=== PATIENT | female | born 1985 | race Two or more races ===

== ENCOUNTER 2018-10-29 09:55 | Inpatient (IN) | payer MEDICAID ==
[~2018-10-29] VITALS: Ht 152.4 cm; Wt 79.4 kg
--- NOTE | 2018-10-29 10:00 | NUR ---
BIB SELF W C/O EPIGASTRIC PAIN X 1 DAY WITH NAUSEA, NO VOMITING. TO ER BED 9, HOOKED TO MONITOR, CHANGED TO WN, AWAITING MD SAMANIEGO
--- NOTE | 2018-10-29 10:11 | NUR ---
URINE SAMPLE SENT TO LAB
--- NOTE | 2018-10-29 10:15 | NUR ---
PT LABS DRAWNED AND SENT TO LAB, AWAITING RESULTS.
[2018-10-29] MEDS ORDERED: ONDANSETRON HCL/PF 4 MG/2 ML VIAL ONE (10:27)
[2018-10-29 10:30] LABS: BASOPHILS % (AUTO) 0.3 % (0.0-2.0); EOSINOPHILS % (AUTO) 0.3 % (0.0-6.0); HEMATOCRIT 40 % (33-45); HEMOGLOBIN 13.5 g/dL (11.5-14.8); LYMPHOCYTES # (AUTO) 1.7 /CMM (0.8-4.8); LYMPHOCYTES % (AUTO) 16.9 % (20.0-44.0); MEAN CORPUSCULAR HGB CONC 33 g/dl (31.0-36.0); MEAN CORPUSCULAR VOLUME 90 fL (82-100); MONOCYTES # (AUTO) 0.7 /CMM (0.1-1.30); MONOCYTES % (AUTO) 7.5 % (2.0-12.0); NEUTROPHILS # (AUTO) 7.4 /CMM (1.8-8.9); PLATELET COUNT (AUTO) 300 /CMM (150-450); RED BLOOD CELL COUNT(AUTO) 4.51 MIL/uL (4.0-5.2); WHITE BLOOD COUNT (AUTO) 9.9 K/uL (4.3-11.0)
[2018-10-29] MEDS ORDERED: ONDANSETRON HCL/PF 4 MG/2 ML VIAL IVP ONE (10:30)
[2018-10-29] MEDS ORDERED: IV NS 0.9% 1,000 ML BAG IV ONE (10:30)
[2018-10-29 10:32] LABS: APPEARANCE,URINE Clear (CLEAR); BILIRUBIN,URINE SMALL (NEGATIVE); BLOOD, URINE Trace-intact Ery/uL (NEGATIVE); COLOR,URINE Yellow (YELLOW); KETONES,URINE Negative (NEGATIVE); LEUKOCYTE ESTERASE ,URINE Small (NEGATIVE); NITRITE, URINE Negative (NEGATIVE); PROTEIN,URINE Negative (NEGATIVE); UGLUCOSE Negative (NEGATIVE); UROBILINOGEN,URINE 0.2 EU/dL (0.2)
--- NOTE | 2018-10-29 10:33 | NUR ---
AT BEDSIDE FOR EVAL.
[2018-10-29 10:34] LABS: CALCIUM, SERUM 9.2 mg/dL (8.5-10.1); CREATININE 0.8 mg/dL (0.6-1.3)
[2018-10-29] MEDS ORDERED: MAG HYDROX/AL HYDROX/SIMETH 30 ML UDC ONE (10:38)
[2018-10-29] MEDS ORDERED: FAMOTIDINE/PF INJ 20 MG/2 ML VIAL IV ONE ×2 (10:39→11:00)
[2018-10-29 10:40] LABS: BACTERIA,URINE 1+ /HPF (None Seen); SQUAMOUS EPITHELIAL CELL,UR Few /HPF (None Seen)
[2018-10-29 10:41] LABS: ALBUMIN 3.8 g/dL (3.4-5.0); BILIRUBIN,TOTAL 1.5 mg/dL (0.2-1.0); TOTAL PROTEIN, SERUM 8.1 g/dL (6.4-8.2)
[2018-10-29] MEDS ORDERED: MAG HYDROX/AL HYDROX/SIMETH 30 ML UDC PO ONE (11:00)
[2018-10-29] MEDS ORDERED: HYDROMORPHONE INJ 2 MG/ML DISP.SYRIN ONE (11:18)
--- NOTE | 2018-10-29 11:20 | NUR ---
CALLED [facility] FOR PANEL CALL AND DR ENG WAS PAGED.
--- NOTE | 2018-10-29 11:20 | NUR ---
TECH AT BEDSIDE FOR US.
--- NOTE | 2018-10-29 11:28 | NUR ---
PT IS ASSIGNED TO MED SURG RM#: [id number], DX: ACUTE PANCREATITIS, AND ACCEPTING MD: DR ENG
[2018-10-29] MEDS ORDERED: HYDROMORPHONE INJ 0.5 MG/0.5 ML SYRINGE IV ONE (11:30)
--- NOTE | 2018-10-29 11:39 | NUR ---
CALLED AND LEFT A VOICEMAIL FOR LOOM TUNER SURGEON -- DR RODRIGUEZ
--- NOTE | 2018-10-29 11:40 | NUR ---
CALLED [facility] AND A PAGE WAS SENT OUT TO DR FOX
--- NOTE | 2018-10-29 11:55 | NUR ---
REPORT GIVEN TO SIMONE BEAN FOR FREDY MS 324-1
--- NOTE | 2018-10-29 12:10 | NUR ---
Dr. Reginaldo Campa [phone] CALLED
--- NOTE | 2018-10-29 12:11 | NUR ---
CALLED Dr. Robi Abreu [phone]
[2018-10-29 12:15] VITALS: BP 106/66
--- NOTE | 2018-10-29 12:15 | NUR ---
MS SUPERVISOR WOOL SHEARING NOTE RECEIVED PT FROM ER VIA WHEELCHAIR, C/O OF ABDOMINAL PAIN. PT IS ALERT AND ORIENTED X4, DENIES N/V, CHEST PAIN, SOB AT THIS TIME. L AC #20G IV IS SALINE LOCKED WITHOUT REDNESS OR SWELLING. PT STATES THAT SHE DOES NOT HAVE ANY ADB PAIN AT THIS CURRENT TIME. PT PLACED IN GOWN AND ID BAND. VS OBTAINED. NPO STATUS MAINTAINED FOR NOW. UNIT ORIENTATION PROVIDED TO PT AND DAFNE AT THE BEDSIDE. BELONGINGS REVIEWED AND BELONGINGS LIST SIGNED AND PLACED IN CHART. ALL NEEDS ATTENDED TO, BED IS LOCKED AND IN THE LOWEST POSITION, SIDE RAILS UP X2, CALL LIGHT WITHIN REACH. PENDING ADMISSION ORDERS FROM DR. ENG.
--- NOTE | 2018-10-29 12:29 | NUR ---
MS RN CONTACTED DR. ENG CONTACTED DR. ENG REQUESTING ADMISSION ORDERS, AWAITING RESPONSE.
--- NOTE | 2018-10-29 14:27 | NUR ---
MS RN CONTACTED DR. ENG CONTACTED DR. ENG REGARDING PT REQUEST FOR PAIN MEDICATION FOR ABD PAIN 04/02 AND FOR ADMISSION ORDERS. AWAITING RESPONSE.
--- NOTE | 2018-10-29 14:44 | NUR ---
MS RN PAGED EPIC PAGED [facility] FOR DR. ENG, AWAITING RESPONSE
[2018-10-29 16:00] VITALS: BP 103/63
[2018-10-29] MEDS ORDERED: IV LR 1000 ML 1,000 ML IV SCH (16:00)
[2018-10-29] MEDS ORDERED: ONDANSETRON HCL/PF 4 MG/2 ML VIAL IV PRN (16:30)
[2018-10-29] MEDS ORDERED: HYDROMORPHONE INJ 2 MG/ML DISP.SYRIN IV ONE (16:30)
[2018-10-29] MEDS ORDERED: Z GUARD REMEDY 2 OZ OINT TP PRN (17:00)
[2018-10-29] MEDS ORDERED: ACETAMINOPHEN 325 MG TABLET PO PRN (17:00)
[2018-10-29] MEDS ORDERED: ZOLPIDEM TARTRATE 5 MG TABLET PO PRN (17:00)
[2018-10-29] MEDS ORDERED: ONDANSETRON HCL/PF 4 MG/2 ML VIAL IVP PRN (17:00)
[2018-10-29] MEDS ORDERED: MAGNESIUM HYDROXIDE 30 ML UDC PO PRN (17:00)
[2018-10-29] MEDS ORDERED: HYDROCODONE/APAP 5/325MG 1 EACH TABLET PO PRN (17:00)
[2018-10-29] MEDS ORDERED: MAG HYDROX/AL HYDROX/SIMETH 30 ML UDC PO PRN (17:00)
--- NOTE | 2018-10-29 17:53 | NUR ---
[facility]ED DR[facility]
--- NOTE | 2018-10-29 18:19 | NUR ---
MS RN CLOSING NOTE PT IN BED, ALERT AND ORIENTED X4. DENIES N/V, CHEST PAIN, SOB, BREATHING IS EVEN AND UNLABORED ON ROOM AIR. L AC #20G IV IS INFUSING ORDERED WITHOUT REDNESS OR SWELLING. ADLS PROVIDED. ALL NEEDS ATTENDED TO, DAFNE AT THE BEDSIDE. BED IS LOCKED AND IN LOWEST POSITION, SIDE RAILS UP X2, BED ALARM ON, CALL LIGHT WITHIN REACH. WILL ENDORSE TO [employer]TER COMMERCIAL NURSE FOR CONTINUITY OF CARE.
--- NOTE | 2018-10-29 19:30 | NUR ---
RECEIVED PATIENT AWAKE IN BED. AO X 3, ABLE TO MAKE NEEDS KNOWN. NO ACUTE DISTRESS NOTED. MONITORED FOR PAIN. IV SITE PATENT, INTACT; IVF INFUSING ORDERED. SAFETY REMINDERS GIVEN. ON LOW BED WITH BILATERAL UPPER SIDE RAILS UP. CALL MYERS WITHIN EASY REACH. WILL CONTINUE TO MONITOR.
[2018-10-29 20:00] VITALS: BP 107/69
[2018-10-29] MEDS: HYDROMORPHONE INJ 2 MG/ML DISP.SYRIN IV PRN (22:41)
[2018-10-30] MEDS: IV NS 0.9% 1,000 ML IV PRN ×2 (00:02→07:24)
--- NOTE | 2018-10-30 06:00 | NUR ---
PATIENT ASLEEP, EASILY AROUSABLE. RESPIRATIONS EVEN. NO SIGNS OF PAIN NOTED. NPO SINCE MIDNIGHT. IVF INFUSING ORDERED. NEEDS ATTENDED. SAFETY PRECAUTIONS AND COMFORT MEASURES IN PLACE. WILL GIVE REPORT TO DAY SHIFT FOR CONTINUITY OF CARE.
[2018-10-30] MEDS: HYDROMORPHONE INJ 2 MG/ML DISP.SYRIN IV PRN (06:28)
[2018-10-30 06:31] LABS: BASOPHILS % (AUTO) 0.2 % (0.0-2.0); EOSINOPHILS % (AUTO) 0.5 % (0.0-6.0); HEMATOCRIT 35 % (33-45); HEMOGLOBIN 11.6 g/dL (11.5-14.8); LYMPHOCYTES # (AUTO) 1.7 /CMM (0.8-4.8); LYMPHOCYTES % (AUTO) 24.9 % (20.0-44.0); MEAN CORPUSCULAR HGB CONC 33 g/dl (31.0-36.0); MEAN CORPUSCULAR VOLUME 90 fL (82-100); MONOCYTES # (AUTO) 0.4 /CMM (0.1-1.30); MONOCYTES % (AUTO) 5.9 % (2.0-12.0); NEUTROPHILS # (AUTO) 4.7 /CMM (1.8-8.9); NEUTROPHILS % (AUTO) 68.5 % (43.0-81.0); PLATELET COUNT (AUTO) 237 /CMM (150-450); RED BLOOD CELL COUNT(AUTO) 3.87 MIL/uL (4.0-5.2); WHITE BLOOD COUNT (AUTO) 6.8 K/uL (4.3-11.0)
--- NOTE | 2018-10-30 07:15 | NUR ---
MSRN. PT RECEIVED A&0X3, TOLERATING ROOM AIR WITHOUT DISTRESS, PT DENIES PAIN AND REPORTS ADEQUATE PAIN MANAGEMENT A THIS TIME. PT NPO R/T PROCEDURE. PT WITH IVC A L AC INTACT AND OPERATIONAL WITH IVF PER RX. PT BED IN LOWEST LOCKED POSITION WITH HANDRAILSX2 AND CALL MYERS WITHIN REACH. PT BRIEFED ON TODAY'S POC AND IS WITHOUT CONCERN OR COMPLAINT AT THIS TIME.
[2018-10-30 07:33] LABS: CALCIUM, SERUM 8.2 mg/dL (8.5-10.1); CREATININE 0.7 mg/dL (0.6-1.3); PHOSPHORUS 3.5 mg/dL (2.5-4.9); POTASSIUM 3.6 mmol/L (3.5-5.1)
[2018-10-30 08:00] VITALS: BP 115/75
--- NOTE | 2018-10-30 08:00 | NUR ---
PT WITH EMESIS X1.
[2018-10-30 16:00] VITALS: BP 116/70
--- NOTE | 2018-10-30 18:40 | NUR ---
MSRN. PT REMAINS A&0X3, TOLERATING ROOM AIR WITHOUT DISTRESS, PT DENIES PAIN AND HAS DENIED PAIN DURING SHIFT. PT REMAINS NPO. PT WITH IVC R HAND C INTACT AND OPERATIONAL WITH IVF PER RX. PT BED IN LOWEST LOCKED POSITION WITH HANDRAILSX2 AND CALL MYERS WITHIN REACH. ALL DAY NURSE DUTIES ATTENDED TO AND PT IS WITHOUT CONCERN OR COMPLAINT AT THIS TIME.
[2018-10-30 20:00] VITALS: BP 109/61
--- NOTE | 2018-10-30 20:00 | NUR ---
MS/RN OPENING NOTES RECEIVED PATIENT IN BED, ALERT, ORIENTED X3, ABLE TO VERBALIZE NEEDS, DENIES PAIN, ABLE TO TOLERATE, REPORTED GAS FELT LIKE AND REQUESTED PRN MAALOX. CONSENT FORM SIGNED AND WAS MADE AWARE BY MD REGARDING THE PROCEDURE FOR EDWIN. , FAMILY INVOLVE, IV FLUIDS RUNNING, ABLE TO TOLERATE FLUIDS, NPO AT MIDNIGHT, CALL LIGHTS WITHIN REACH, BED LOCKED WILL MONITOR.
[2018-10-30 20:59] LABS: BILIRUBIN,DIRECT 0.4 mg/dL (0.0-0.2); BILIRUBIN,TOTAL 0.8 mg/dL (0.2-1.0)
[2018-10-31] MEDS: IV NS 0.9% 1,000 ML IV PRN (04:18)
[2018-10-31 06:23] LABS: BASOPHILS % (AUTO) 0.2 % (0.0-2.0); EOSINOPHILS % (AUTO) 1.2 % (0.0-6.0); HEMATOCRIT 34 % (33-45); HEMOGLOBIN 11.2 g/dL (11.5-14.8); LYMPHOCYTES # (AUTO) 1.9 /CMM (0.8-4.8); LYMPHOCYTES % (AUTO) 28.7 % (20.0-44.0); MEAN CORPUSCULAR HGB CONC 33 g/dl (31.0-36.0); MEAN CORPUSCULAR VOLUME 90 fL (82-100); MONOCYTES # (AUTO) 0.4 /CMM (0.1-1.30); MONOCYTES % (AUTO) 6.3 % (2.0-12.0); NEUTROPHILS # (AUTO) 4.1 /CMM (1.8-8.9); NEUTROPHILS % (AUTO) 63.6 % (43.0-81.0); PLATELET COUNT (AUTO) 233 /CMM (150-450); RED BLOOD CELL COUNT(AUTO) 3.78 MIL/uL (4.0-5.2); WHITE BLOOD COUNT (AUTO) 6.5 K/uL (4.3-11.0)
[2018-10-31 07:11] LABS: CREATININE 0.7 mg/dL (0.6-1.3); MAGNESIUM 2.4 mg/dL (1.8-2.4); PHOSPHORUS 3.2 mg/dL (2.5-4.9); POTASSIUM 3.6 mmol/L (3.5-5.1)
--- NOTE | 2018-10-31 07:30 | NUR ---
MSRN. PT RECEIVED A&0X3, TOLERATING ROOM AIR WITHOUT DISTRESS, PT DENIES PAIN. PT NPO R/T surg. PT WITH IVC A L HAND INTACT AND OPERATIONAL WITH IVF PER RX. PT BED IN LOWEST LOCKED POSITION WITH HANDRAILSX2 AND CALL MYERS WITHIN REACH. PT BRIEFED ON TODAY'S POC AND IS WITHOUT CONCERN OR COMPLAINT AT THIS TIME.
--- NOTE | 2018-10-31 07:34 | NUR ---
324-1 MS/RN NOTES PATIETN IN BED ABLE TO SLEEP DURING THE NIGHT, ALERT, ORIENTED, ABLE TO VERBALIZE NEEDS, BRP, SEF CARE, ON NPO AFTER MN FOR PROCEDURE WITH DR RODRIGUEZ, WILL MONITOR. CALL LIGHTS WITHIN REACH, BED LOCKED.
[2018-10-31 08:00] VITALS: BP 104/62
[2018-10-31] MEDS ORDERED: HYDROMORPHONE INJ 2 MG/ML DISP.SYRIN ONE (11:47)
[2018-10-31] MEDS ORDERED: MIDAZOLAM HCL 2 MG/2ML VIAL ONE (11:47)
[2018-10-31] MEDS ORDERED: ROCURONIUM BROMIDE 50 MG/5 ML ONE (11:47)
[2018-10-31] MEDS ORDERED: BUPIVACAINE MPF 0.5% W/EPI INJ 30 ML VIAL ONE (12:01)
[2018-10-31] MEDS ORDERED: LIDOCAINE HCL/PF 1% 30 ML SDV ONE (12:01)
[2018-10-31] MEDS ORDERED: HYDROMORPHONE 1 MG/1 ML DISP.SYRIN ONE (13:29)
[2018-10-31] MEDS ORDERED: IV D5/0.45 NACL W/20 MEQ KCL 1L IV PRN ×2 (15:30)
[2018-10-31] MEDS ORDERED: HYDROMORPHONE INJ 2 MG/ML DISP.SYRIN IV PRN (15:30)
[2018-10-31] MEDS ORDERED: ZOLPIDEM TARTRATE 5 MG TABLET PO PRN (15:30)
[2018-10-31 16:00] VITALS: BP 109/70
--- NOTE | 2018-10-31 16:00 | NUR ---
PT RETURNED FROM SURG, DENIES PAIN OR DISCOMFORT, VITALS Q2OMIN WNL. AT BEDSIDE. ORDERS PLACED.
[2018-10-31] MEDS: oxyCODONE/APAP (5/325 MG) 1 UDTAB TABLET PO PRN ×2 (16:57→23:01)
--- NOTE | 2018-10-31 18:21 | NUR ---
MSRN. PT REMAINS A&0X3, TOLERATING ROOM AIR WITHOUT DISTRESS, PT DENIES PAIN. PT WITH IVC A L FA INTACT AND OPERATIONAL WITH IVF PER RX. POST OP DRESSINGS CLEAN AND INTACT. PT BED IN LOWEST LOCKED POSITION WITH HANDRAILSX2 AND CALL MYERS WITHIN REACH. ALL DAY NURSE DUTIES ATTENDED TO AND PT IS WITHOUT CONCERN OR COMPLAINT AT THIS TIME. WILL ENDORSE TO NIGHT NURSE AT BEDSIDE FOR FREDY.
--- NOTE | 2018-10-31 19:10 | NUR ---
MS RN OPENING NOTES PATIENT RECEIVED IN BED, ALERT, ORIENTED X3. FAMILY AT BEDSIDE. TOLERATING ROOM AIR WITHOUT DISTRESS. DENIES PAIN OR DISCOMFORT OF THIS TIME. PERIPHERAL IV INFUSING WELL. PATIENT'S BED IN LOWEST LOCKED POSITION WITH HANDRAILSX2 AND CALL MYERS WITHIN REACH. PATIENT STABLE ENDORSED BY THE AM RN. WILL CONTINUE TO MONITOR ACCORDINGLY
[2018-10-31 20:00] VITALS: BP 109/70
[2018-10-31] MEDS: ANCEF 1 GM/50 ML D5W IV SCH ×2 (20:00)
[2018-11-01] MEDS: ANCEF 1 GM/50 ML D5W IV SCH ×2 (03:48)
[2018-11-01 06:52] LABS: BASOPHILS % (AUTO) 0.1 % (0.0-2.0); EOSINOPHILS % (AUTO) 0.1 % (0.0-6.0); HEMATOCRIT 32 % (33-45); HEMOGLOBIN 10.7 g/dL (11.5-14.8); LYMPHOCYTES # (AUTO) 1.8 /CMM (0.8-4.8); LYMPHOCYTES % (AUTO) 16.9 % (20.0-44.0); MEAN CORPUSCULAR HGB CONC 34 g/dl (31.0-36.0); MEAN CORPUSCULAR VOLUME 90 fL (82-100); MONOCYTES # (AUTO) 0.8 /CMM (0.1-1.30); MONOCYTES % (AUTO) 7.1 % (2.0-12.0); NEUTROPHILS # (AUTO) 8.1 /CMM (1.8-8.9); NEUTROPHILS % (AUTO) 75.8 % (43.0-81.0); PLATELET COUNT (AUTO) 249 /CMM (150-450); RED BLOOD CELL COUNT(AUTO) 3.56 MIL/uL (4.0-5.2); WHITE BLOOD COUNT (AUTO) 10.6 K/uL (4.3-11.0)
--- NOTE | 2018-11-01 07:30 | NUR ---
RN MS NOTES PT IN BED, AWAKE, ALERT AND ORIENTED, NO COMPLAINT OF PAIN AT THIS TIME, RESPIRATIONS NORMAL, IV FLUIDS INFUSING WELL, CALL LIGHT WITHIN REACH, NEEDS ATTENDED.
[2018-11-01 07:33] LABS: CALCIUM, SERUM 8.4 mg/dL (8.5-10.1); CREATININE 0.8 mg/dL (0.6-1.3); MAGNESIUM 2.3 mg/dL (1.8-2.4); PHOSPHORUS 3.5 mg/dL (2.5-4.9); POTASSIUM 3.9 mmol/L (3.5-5.1)
--- NOTE | 2018-11-01 07:38 | NUR ---
MS RN CLOSING NOTES PATIENT IN BED, ALERT, ORIENTED X3. TOLERATING ROOM AIR WITHOUT DISTRESS. DENIES PAIN OR DISCOMFORT OF THIS TIME. PERIPHERAL IV INFUSING AT 60ML/HR. PATIENT'S BED IN LOWEST LOCKED POSITION WITH HANDRAILSX2 AND CALL MYERS WITHIN REACH. ENDORSED FREDY TO AM RN
[2018-11-01 08:00] VITALS: BP 98/61
[2018-11-01] MEDS: oxyCODONE/APAP (5/325 MG) 1 UDTAB TABLET PO PRN ×2 (08:59→18:48)
[2018-11-01] MEDS: DOCUSATE SODIUM 250 MG CAPSULE PO SCH ×2 (12:06→16:28)
[2018-11-01] MEDS: POLYETHYLENE GLYCOL 3350 17 GM POWD.PACK PO SCH (12:06)
--- NOTE | 2018-11-01 12:34 | NUR ---
RN MS NOTES PT IN BED, AWAKE, ALERT AND ORIENTED, PAIN MEDS GIVEN FOR PAIN MANAGEMENT, STATED THAT IT IS EFFECTIVE, PT SEEN BY DR. ENG, PLAN OF CARE DISCUSSED WITH PT, VERBALIZED UNDERSTANDING, ABLE TO AMBULATE TO THE BATHROOM WITH SLOW AND STEADY GAIT.
[2018-11-01 16:00] VITALS: BP 113/63
--- NOTE | 2018-11-01 18:56 | NUR ---
RN MS NOTES PT IN BED, AWAKE, ALERT AND ORIENTED, PAIN MEDS GIVEN FOR PAIN MANAGEMENT, TOLERATING CURRENT DIET WELL, AMBULATES TO THE BATHROOM WITH STEADY GAIT, PM MEDS GIVEN, HAD 1 SMALL BM TODAY, ALL NEEDS ATTENDED.
--- NOTE | 2018-11-01 19:25 | NUR ---
MS RN NOTES RECEIVED ON BED,CALM PAIN TOLERABLE AT THE MOMENT,JUST MEDICATED WITH NORCO BY [id number] NURSE.S/P LAP DEMETRIUS ON 10/31,WITH SMALL ABDOMINAL INCISION X3,DRESSING INTACT AND DRY.WITH LFA SALINE LOCK INTACT AND PATENT.DVT PUMP OFF AT THE MOMENT.ON GEL BED.CALL LIGHT IN REACH,NEEDS ANTICIPATED.
[2018-11-01 20:00] VITALS: BP 99/61
[2018-11-01] MEDS ORDERED: BISACODYL (5 MG) 5 MG TABLET.DR PO PRN (22:00)
[2018-11-01 22:53] VITALS: BP 99/61
--- NOTE | 2018-11-02 01:00 | NUR ---
MS RN NOTES SOUND ASLEEP,KEPT WARM AND COMFORTABLE.
--- NOTE | 2018-11-02 05:58 | NUR ---
MS RN NOTES AWAKE,C/O CONSTIPATION,MEDICATED WITH MILK OF MAGNESIA 30ML PER PATIENT REQUEST.WILL MONITOR FOR BM
[2018-11-02 06:15] LABS: BASOPHILS % (AUTO) 0.3 % (0.0-2.0); EOSINOPHILS % (AUTO) 1.3 % (0.0-6.0); HEMATOCRIT 34 % (33-45); HEMOGLOBIN 11.4 g/dL (11.5-14.8); LYMPHOCYTES # (AUTO) 2.6 /CMM (0.8-4.8); LYMPHOCYTES % (AUTO) 40.9 % (20.0-44.0); MEAN CORPUSCULAR HGB CONC 33 g/dl (31.0-36.0); MEAN CORPUSCULAR VOLUME 90 fL (82-100); MONOCYTES # (AUTO) 0.4 /CMM (0.1-1.30); MONOCYTES % (AUTO) 6.6 % (2.0-12.0); NEUTROPHILS # (AUTO) 3.3 /CMM (1.8-8.9); NEUTROPHILS % (AUTO) 50.9 % (43.0-81.0); PLATELET COUNT (AUTO) 245 /CMM (150-450); RED BLOOD CELL COUNT(AUTO) 3.83 MIL/uL (4.0-5.2); WHITE BLOOD COUNT (AUTO) 6.5 K/uL (4.3-11.0)
[2018-11-02 06:26] LABS: CALCIUM, SERUM 8.7 mg/dL (8.5-10.1); CREATININE 0.7 mg/dL (0.6-1.3); PHOSPHORUS 4.2 mg/dL (2.5-4.9)
--- NOTE | 2018-11-02 07:11 | NUR ---
MS RN NOTES SLEPT WELL AT NIGHT.NO COMPLAINTS OF PAIN.STILL WAITING TO HAVE BM AFTER GIVING MOM.POSSIBLE DISCHARGE TODAY WHEN STABLE.IN NO ACUTE DISTRESS.REPORT GIVEN TO ADIEL NICHOLS.
--- NOTE | 2018-11-02 07:30 | NUR ---
RN MS NOTES PT IN BED, ASLEEP, NO SIGN OF PAIN OR DISTRESS, CALL LIGHT WITHIN REACH, KEPT WARM AND COMFORTABLE IN BED.
[2018-11-02 08:00] VITALS: BP 109/70
[2018-11-02] MEDS ORDERED: DOCU100C36 PO (08:42)
[2018-11-02] MEDS ORDERED: ACET325C5 PO (08:42)
[2018-11-02] MEDS ORDERED: ONDA4TAB5 PO (08:42)
[2018-11-02] MEDS: POLYETHYLENE GLYCOL 3350 17 GM POWD.PACK PO SCH (08:46)
[2018-11-02] MEDS: DOCUSATE SODIUM 250 MG CAPSULE PO SCH (08:46)
--- NOTE | 2018-11-02 10:35 | NUR ---
RN MS NOTES PT AWAKE, SITTING IN BED, ALERT AND ORIENTED, NO COMPLAINT OF PAIN, RESPIRATIONS NORMAL, AMBULATES TO THE BATHROOM WITH STEADY GAIT, TOLERATING REGULAR DIET, PT ABLE TO HAVE SMALL BM LAST NIGHT, SEEN BY JOSE BEEF SKINNER, DISCHARGE ORDER GIVEN, DISCHARGE AND MEDICATION INSTRUCTIONS PROVIDED TO PT, PT TO FOLLOW UP WITH DR. RODRIGUEZ, VERBALIZED UNDERSTANDING, DR. RODRIGUEZ'S INFORMATION PROVIDED TO PT, NEW PRESCRIPTION PROVIDED TO PT, BELONGINGS ACCOUNTED FOR, NO BLEEDING NOTED TO ABDOMINAL LAP SITES, DRESSING DRY AND INTACT, PICKED UP BY HER FRIEND, ASSISTED TO HOSPITAL LOBBY BY WHEELCHAIR BY MOLD FORMS BUILDER, LEFT IN STABLE CONDITION.
== END 2018-11-02 10:25 | disposition home or self-care (01) | DRG 263 ==
LOC: ER 09:56 → MED 11:31
PROVIDERS: ADMIT Internal Medicine; ATTEND Nurse Practitioner Acute Care
PROC: 0FT44ZZ Resection of Gallbladder, Percutaneous Endoscopic Approach (ICD-10-PCS; principal; 2018-10-31)
DX: K85.10 Biliary acute pancreatitis without necrosis or infection (principal); K76.0 Fatty (change of) liver, not elsewhere classified; E66.9 Obesity, unspecified; E78.5 Hyperlipidemia, unspecified; Z68.34 Body mass index [BMI] 34.0-34.9, adult
CPT/HCPCS: 36415; 74181-TC; 76700-TC; 78226; 80048-TC; 80061-TC; 80074; 80076-TC; 81000-TC; 82247-TC; 82248-TC; 83690-TC; 83735-TC; 84100-TC; 84703-TC; 85025-TC; 85610-TC; 85730-TC; 86850-TC; 87081-TC; 87086-TC; 88304-TC; A9537; G0378; J0690; J1100; J1170; J1885; J2250; J2405; J2704; J2710; J3480; J3490; J7030; J7060; J7120

== ENCOUNTER 2021-05-20 19:33 | Emergency (ER) | payer MEDICAID ==
[~2021-05-20] VITALS: Ht 152.4 cm; Wt 75.7 kg
[2021-05-20 19:33] VITALS: BP 114/73
[~2021-05-20 19:33] MED LIST: ACET325C7 PO; DOCU100C36 PO; ONDA4TAB5 PO
[2021-05-20] MEDS ORDERED: IBUPROFEN 600 MG TABLET ONE (21:48)
[2021-05-20] MEDS: IBUPROFEN 600 MG TABLET PO ONE (21:49)
--- NOTE | 2021-05-20 22:45 | NUR ---
CALLED [facility] FOR STAT READ
[2021-05-20] MEDS ORDERED: IBUP-1955 PO (22:58)
--- NOTE | 2021-05-20 23:07 | NUR ---
Patient discharged to home in stable condition. Written and verbal after care instructions given. Patient verbalizes understanding of instruction.
== END 2021-05-20 23:11 | disposition home or self-care (01) ==
LOC: ER 19:35
DX: M79.672 Pain in left foot (principal); Z79.899 Other long term (current) drug therapy
CPT/HCPCS: 73630-TC; 84703-TC

== ENCOUNTER 2022-06-27 04:21 | Emergency (ER) | payer MEDICAID ==
[~2022-06-27] VITALS: Ht 152.4 cm; Wt 72.6 kg
[~2022-06-27 04:21] MED LIST changes: +IBUP-1955 PO
[2022-06-27 04:28] VITALS: BP 132/70
[2022-06-27] MEDS ORDERED: ERYT3.5O9 EACHEYE (04:35)
== END 2022-06-27 05:18 | disposition home or self-care (01) ==
LOC: ER 04:23
DX: H01.005 Unspecified blepharitis left lower eyelid (principal)